=== PATIENT | female | born 1960 | race Caucasian/White ===

== ENCOUNTER → 2018-02-22 07:28 | Outpatient (CLI) | payer MEDICAID, SELFPAY ==
[2018-02-22 09:58] LABS: Hematocrit 43.6 % (37-47); Hemoglobin 14.4 g/dl (12.0-15.0); Mean Corpuscular Hgb 28.5 pg (27.0-32.0); Mean Corpuscular Volume 86.3 fL (81-99); Mean Platelet Vol. 9.6 fl (6.2-12.0); Platelet Count 257 K/mm3 (150-450); RBC Distribution Width CV 12.9 % (11.6-14.6); Red Blood Count 5.05 M/mm3 (4.2-5.4); Scan Indicated on CBC? Y/N NO; White Blood Count 6.5 K/mm3 (4.4-11.0)
[2018-02-22 10:15] LABS: Vitamin B12 259 pg/mL (211-911)
[2018-02-22 11:22] LABS: ALB/GLOB Ratio 1.3 RATIO (0.9-2.4); AST(SGOT) 23 U/L (15-37); Alanine Aminotransfer ALT/SGPT 31 U/L (13-56); Albumin, Serum 3.9 g/dL (3.2-5.0); Alkaline Phosphatase 69 U/L (45-117); Anion Gap 9 (5-15); BUN 17 mg/dL (7-18); BUN/Creat Ratio 18.4 RATIO (10-20); Calcium,Total 8.6 mg/dL (8.5-10.1); Chloride 108 mmol/L (98-107); Cholesterol 253 mg/dL (200); Creatinine, Serum 0.92 mg/dL (0.55-1.02); EST Glomerular Filtration Rate 66 mL/min (>60); Est Glom Filt Rate - Afr Amer 80 mL/min (>60); Glucose 95 mg/dL (74-106); High Density Lipoprotein 53 mg/dL; Protein, Total 6.9 g/dL (6.4-8.2); Sodium Level 143 mmol/L (136-145); Thyroid Stim Hormone (TSH) 2.34 uIU/mL (0.358-3.74); Triglycerides 295 mg/dL; Very Low Density Lipoprotein 59 mg/dL (5-40)
== END ==
PROVIDERS: Family Provider Family Medicine; PCP Family Medicine; Visit Provider Family Medicine
DX: R53.83 Other fatigue (principal); R20.2 Paresthesia of skin; Z13.6 Encounter for screening for cardiovascular disorders
CPT/HCPCS: 36415; 80053; 80061; 82607; 82746; 84443; 85027

== ENCOUNTER → 2018-03-24 14:18 | Outpatient (CLI) | payer MEDICAID, SELFPAY ==
[2018-03-24 16:01] LABS: Vitamin B12 666 pg/mL (211-911)
== END ==
PROVIDERS: Family Provider Family Medicine; PCP Family Medicine; Visit Provider Family Medicine
DX: E53.8 Deficiency of other specified B group vitamins (principal)
CPT/HCPCS: 36415; 82607; 82746

== ENCOUNTER → 2019-07-19 09:18 | Outpatient (CLI) | payer MEDICAID, SELFPAY ==
[2015-06-22 13:21] VITALS: BMI 33.0
[2019-07-19 12:35] LABS: Hematocrit 43.7 % (37-47); Hemoglobin 14.3 g/dL (12.0-15.0); Mean Corp Hgb Conc 32.7 g/dL (32-36); Mean Corpuscular Hgb 28.4 pg (27.0-32.0); Mean Corpuscular Volume 86.7 fL (81-99); Mean Platelet Vol. 9.7 fl (6.2-12.0); Platelet Count 282 K/mm3 (150-450); RBC Distribution Width CV 12.6 % (11.6-14.6); RBC Distribution Width SD 39.8 fl (35.1-43.9); Red Blood Count 5.04 M/mm3 (4.2-5.4); White Blood Count 5.9 K/mm3 (4.4-11.0)
[2019-07-19 12:47] LABS: Vitamin B12 779 pg/mL (211-911)
[2019-07-19 12:50] LABS: ALB/GLOB Ratio 1.5 RATIO (0.9-2.4); AST(SGOT) 15 U/L (15-37); Alanine Aminotransfer ALT/SGPT 29 U/L (13-56); Albumin, Serum 4.1 g/dL (3.2-5.0); Alkaline Phosphatase 66 U/L (45-117); Anion Gap 8 (5-15); BUN 16 mg/dL (7-18); BUN/Creat Ratio 18.7 RATIO (10-20); Calcium,Total 8.9 mg/dL (8.5-10.1); Chloride 108 mmol/L (98-107); Cholesterol 273 mg/dL (200); Creatinine, Serum 0.86 mg/dL (0.55-1.02); EST Glomerular Filtration Rate 72 mL/min (>60); Est Glom Filt Rate - Afr Amer 87 mL/min (>60); Globulin 2.8 g/dL (2.2-4.2); Glucose 86 mg/dL (74-106); High Density Lipoprotein 58 mg/dL; Potassium 3.8 mmol/L (3.5-5.1); Protein, Total 6.9 g/dL (6.4-8.2); Sodium Level 141 mmol/L (136-145); Thyroid Stim Hormone (TSH) 2.15 uIU/mL (0.358-3.74); Triglycerides 216 mg/dL; Very Low Density Lipoprotein 43 mg/dL (5-40)
== END ==
PROVIDERS: Family Provider Family Medicine; PCP Family Medicine; Referring Provider Family Medicine; Visit Provider Family Medicine
DX: R41.3 Other amnesia (principal); E53.8 Deficiency of other specified B group vitamins; Z13.1 Encounter for screening for diabetes mellitus; Z13.6 Encounter for screening for cardiovascular disorders
CPT/HCPCS: 36415; 80053; 80061; 82607; 84443; 85027

== ENCOUNTER → 2020-05-11 16:03 | Outpatient (CLI) | payer MEDICAID, SELFPAY ==
[2015-06-22 13:21] VITALS: BMI 33.0
[2020-05-11 17:09] LABS: Hematocrit 45.2 % (37-47); Hemoglobin 14.9 g/dL (12.0-15.0); Mean Corpuscular Hgb 28.7 pg (27.0-32.0); Mean Corpuscular Volume 87.1 fL (81-99); Mean Platelet Vol. 9.9 fl (6.2-12.0); Platelet Count 305 K/mm3 (150-450); RBC Distribution Width CV 12.4 % (11.6-14.6); RBC Distribution Width SD 39.7 fl (35.1-43.9); Red Blood Count 5.19 M/mm3 (4.2-5.4); White Blood Count 7.7 K/mm3 (4.4-11.0)
[2020-05-11 17:36] LABS: Vitamin B12 742 pg/mL (211-911)
[2020-05-11 17:42] LABS: ALB/GLOB Ratio 1.4 RATIO (0.9-2.4); AST(SGOT) 25 U/L (15-37); Alanine Aminotransfer ALT/SGPT 31 U/L (13-56); Albumin, Serum 4.1 g/dL (3.2-5.0); Alkaline Phosphatase 73 U/L (45-117); Anion Gap 7 (5-15); BUN 18 mg/dL (7-18); BUN/Creat Ratio 21.2 RATIO (10-20); Chloride 107 mmol/L (98-107); Cholesterol 195 mg/dL (200); Creatinine, Serum 0.85 mg/dL (0.55-1.02); EST Glomerular Filtration Rate 72 mL/min (>60); Est Glom Filt Rate - Afr Amer 87 mL/min (>60); Glucose 86 mg/dL (74-106); High Density Lipoprotein 65 mg/dL; Potassium 4.1 mmol/L (3.5-5.1); Protein, Total 7.1 g/dL (6.4-8.2); Sodium Level 139 mmol/L (136-145); Thyroid Stim Hormone (TSH) 1.44 uIU/mL (0.358-3.74); Triglycerides 234 mg/dL; Very Low Density Lipoprotein 47 mg/dL (5-40)
== END ==
PROVIDERS: PCP Family Medicine; Referring Provider Family Medicine; Visit Provider Family Medicine
DX: R41.3 Other amnesia (principal); Z13.1 Encounter for screening for diabetes mellitus; Z13.6 Encounter for screening for cardiovascular disorders; E53.8 Deficiency of other specified B group vitamins
CPT/HCPCS: 36415; 80053; 80061; 82607; 84443; 85027

== ENCOUNTER → 2021-06-17 13:46 | Outpatient (CLI) | payer MEDICAID, SELFPAY ==
[2021-06-17 16:00] LABS: ALB/GLOB Ratio 1.2 RATIO (0.9-2.4); AST(SGOT) 20 U/L (15-37); Alanine Aminotransfer ALT/SGPT 28 U/L (13-56); Albumin, Serum 3.7 g/dL (3.2-5.0); Alkaline Phosphatase 75 U/L (45-117); Anion Gap 7 (5-15); BUN 15 mg/dL (7-18); Calcium,Total 9.1 mg/dL (8.5-10.1); Chloride 107 mmol/L (98-107); Cholesterol 178 mg/dL (200); Creatinine, Serum 0.94 mg/dL (0.55-1.02); EST Glomerular Filtration Rate 64 mL/min (>60); Est Glom Filt Rate - Afr Amer 77 mL/min (>60); Globulin 3.2 g/dL (2.2-4.2); Glucose 88 mg/dL (74-106); High Density Lipoprotein 64 mg/dL; Protein, Total 6.9 g/dL (6.4-8.2); Sodium Level 140 mmol/L (136-145); Triglycerides 318 mg/dL; Very Low Density Lipoprotein 64 mg/dL (5-40)
== END ==
PROVIDERS: PCP Family Medicine; Referring Provider Family Medicine; Visit Provider Family Medicine
DX: E78.2 Mixed hyperlipidemia (principal)
CPT/HCPCS: 36415; 80053; 80061

== ENCOUNTER 2022-09-16 09:22 | Emergency (ER) | payer MEDICAID, SELFPAY ==
[2022-09-16 09:23] VITALS: BP 174/98; PULSE 93; RESP 16; TEMP 36.7; O2SAT 98; BMI 30.2
--- NOTE | 2022-09-16 09:27 | CT_ITS ---
STUDY: CT ABDOMEN AND PELVIS WITHOUT CONTRAST REASON FOR EXAM: Female, 62 years old. Kidney Stone. Right flank pain and hematuria for 2 days. History of ulcerative colitis. RADIATION DOSAGE (If Supplied By Facility): CTDIvol = ( 10.82 ) mGy, DLP = ( 526.89 ) mGycm TECHNIQUE: Transaxial images were obtained from the dome of the diaphragm to the symphysis pubis without oral contrast, and without intravenous contrast. Sagittal and coronal images were reconstructed. Individualized dose optimization techniques were used for this CT. COMPARISON: Comparison is made with prior examination 06/21/2015. FINDINGS: The visualized lung bases are unremarkable. Coronary artery calcification. Normal liver. Normal gallbladder and extrahepatic biliary system. Normal spleen. Normal pancreas. Normal bilateral adrenal glands. There is a 6.9 mm calculus in the right renal pelvis. No significant hydronephrosis seen. 2 mm calculus in the upper pole calyx of the right kidney. Nonobstructive left intrarenal calculi. The largest measures 4.7 mm. There is a small hiatal hernia. Normal small intestine. Surgical anastomosis in the region of the rectosigmoid colon. Moderate amount of fecal material is seen in the rectosigmoid colon. The appendix is visualized and appears normal. There is scattered atherosclerotic calcification of the abdominal aorta, without a demonstrated aneurysm. Normal inferior vena cava. Normal retroperitoneum. Normal urinary bladder. Small bilateral inguinal hernias containing fat. There are degenerative changes of the visualized lumbar spine. CT/Abdomen/Pelvis without Cont IMPRESSION: 6.9 mm calculus in the right renal pelvis. No significant hydronephrosis seen. Bilateral nonobstructive intrarenal calculi. Surgical anastomosis at the level of the rectosigmoid colon. Electronically Signed: Evaristo Kay MD at 10:29 EST ,
--- NOTE | 2022-09-16 09:31 | EDS_ITS ---
HPI HPI - Female History of Present Illness Chief Complaint: Flank Pain Narrative Narrative: 62-year-old female presenting with right flank pain. She states been present for about 4 days. She currently relates that its a mild nagging pain. Its been constant in radiates somewhat to the right lower abdomen. She states that she is not been vomiting. She is able to eat and drink. He states is not constipated and she is not having diarrhea. She is making normal stool. She denies a fever. She admits to history of kidney stones in the past. She states that her last kidney stone was about 10 years ago. Patient at that time had laser lithotripsy and stent. Patient saw Dr. Zuluaga. Patient notes that for the last 2 days she has had hematuria without dysuria or urinary frequency. She states she does not typically get urinary tract infections. PFSH [facility] Medical History Kidney stones Home Medications bupropion HCl 100 mg tablet 100 mg PO DAILY 06/21/15 [History Last Taken 06/21/15] ciprofloxacin HCl 250 mg tablet 250 mg PO BID 06/21/15 [History Last Taken 06/21/15] fluoxetine 40 mg capsule 40 mg PO DAILY 06/21/15 [History Last Taken 06/21/15] oxycodone-acetaminophen 7.5 mg-325 mg tablet (Percocet) 1 tab PO Q4H PRN PRN Pain 06/21/15 [History Last Taken 06/21/15 13:00] rosuvastatin 5 mg tablet 5 mg PO DAILY 09/16/22 [History Last Taken Unknown] [id number] 18 mg-10 mg-45 mg-5 mg-250 mg tablet (B Complex w-Vit C) 1 tab PO DAILY 09/16/22 [History Last Taken Unknown] Allergy/AdvReac Type Severity Reaction Status Date / Time meperidine HCl [From Demerol] AdvReac Vomiting Verified 09/16/22 09:25 Surgical History H/O total colectomy Social History Smoking Status: Never smoker ROS ROS ED Constitutional Constitutional ED: Denies chills or fever(s) Eyes Eyes: Denies change in vision or diplopia ENT ENT ED: Denies rhinorrhea or sore throat Cardiovascular Cardiovascular: Denies chest pain or palpitations Respiratory/Chest Respiratory/Chest: Denies cough or dyspnea Gastrointestinal Gastrointestinal: Reports abdominal pain; Denies constipation, diarrhea, nausea or vomiting Genitourinary Genitourinary ED: Reports hematuria; Denies dysuria Musculoskeletal Musculoskeletal: Reports other Details: Right flank pain ; Denies arthralgias or myalgias Integumentary Denies abscess or Abrasions Neurologic Neurologic: Denies headache(s) or paresthesias Psychiatric Psychiatric: Denies anxiety or depression EXAM Physical Exam Const Vital Signs: 09/16/22 09:23 Temperature 98.1 F Temperature Source Temporal Pulse Rate 93 Respiratory Rate 16 Blood Pressure 174/98 H Blood Pressure Mean 123 Pulse Ox 98 Oxygen Delivery Method Room Air Positive well nourished General Appearance ED: NAD HEENT Reports moist mucous membranes Eyes PERRL and EOMs intact bilaterally Neck no lymphadenopathy Resp normal respiratory effort and clear to auscultation bilaterally Auscultation: Negative for rales, rhonchi or wheezes Cardio regular rate and regular rhythm Back/Spine General Back: CVA tenderness right Extremity normal to inspection Neuro oriented x3 and CN's II-XII intact bilaterally Sensorium / Orientation: alert Motor Exam: strength 5/5 throughout Psych mental status grossly normal Skin no rashes or lesions noted and no wounds MDM MDM MDM Narrative Medical decision making narrative: Patient presenting with right flank pain and history of kidney stones. She does not report any history of vomiting, constipation, diarrhea. Highest on the differential is right-sided kidney stone however this could be pyelonephritis as well. Patient also with history of ulcerative colitis as well as a J-pouch. This also included in the differentials UC flare and possibly obstruction. Given its location I also did consider gallstones and atypical presentation. Li george panel and lipase will be checked. CBC with obtained to check white blood cell count, differential. BMP will be obtained to check renal function electrolytes. Urinalysis obtained to distinguish from occult hematuria and UTI. Patient states she feels pretty comfortable currently and only wants Toradol and Zofran. CBC shows a normal white blood cell count 8.7. There is slight hemoconcentration of hemoglobin at 15.5. There is no left shift. GFR slightly decreased at 59 and creatinine 1.01 with increased BUN/creatinine ratio 22.8. Patient was given a liter of IV fluids. Glucose slightly elevated at 111 without anion gap. Electrolytes normal. Urinalysis shows 15 urine ketones, 250 occult blood, 100 leukocyte esterase, 10-25 white blood cells, 2+ bacteria without any squamous epithelial cells. I am concerned for pyelonephritis at this point. Given that the patient has a 6.9 mm calculus in the right renal pelvis which has been present for days and constant pain I did speak with Tamy. He was amenable to admitting the patient. Patient given a dose of Rocephin IV. Urine culture was sent. All results were discussed with the patient as well as the plan. Patient mated in stable condition. Impression: 1. Pyelonephritis 2. 6.9 mm right renal pelvis calculi 3. Hematuria 4. Right flank Lab Data Attestation: I reviewed the patient's lab results. Labs: Laboratory Results - last 24 hr 09/16/22 09/16/22 09/16/22 09:33 09:33 09:33 WBC 8.7 RBC 5.38 Hgb 15.5 H Hct 46.3 MCV 86.1 MCH 28.8 MCHC 33.5 RDW Std Deviation 40.9 RDW Coeff of Marguerite 13.0 Plt Count 317 MPV 9.4 Immature Gran % (Auto) 0.200 Neut % (Auto) 43.1 L Lymph % (Auto) 41.7 H [place] % (Auto) 11.0 H Eos % (Auto) 2.9 Baso % (Auto) 1.1 H Absolute Neuts (auto) 3.8 Absolute Lymphs (auto) 3.64 Nucleated RBC % 0 Sodium 140 Potassium 4.1 Chloride 111 H Carbon Dioxide 24.0 Anion Gap 5 BUN 23 H Creatinine 1.01 Estim Creat Clear Calc 44.51 Est GFR (MDRD) Af Amer 71 Est GFR (MDRD) Non-Af 59 L BUN/Creatinine Ratio 22.8 H Glucose 111 H Calcium 9.1 Total Bilirubin 0.80 Direct Bilirubin 0.15 AST 17 ALT 26 Alkaline Phosphatase 68 Total Protein 7.5 Albumin 4.0 Globulin 3.5 Lipase 240 Urine Color Urine Clarity Urine pH Ur Specific [place] Urine Protein Urine Glucose (UA) Urine Ketones Urine Occult Blood Urine Nitrite Urine Bilirubin Urine Urobilinogen Ur Leukocyte Esterase Urine RBC Urine WBC Ur Squamous Epith Cells Urine Bacteria Urine Mucus 09/16/22 10:35 WBC RBC Hgb Hct MCV MCH MCHC RDW Std Deviation RDW Coeff of Marguerite Plt Count MPV Immature Gran % (Auto) Neut % (Auto) Lymph % (Auto) [place] % (Auto) Eos % (Auto) Baso % (Auto) Absolute Neuts (auto) Absolute Lymphs (auto) Nucleated RBC % Sodium Potassium Chloride Carbon Dioxide Anion Gap BUN Creatinine Estim Creat Clear Calc Est GFR (MDRD) Af Amer Est GFR (MDRD) Non-Af BUN/Creatinine Ratio Glucose Calcium Total Bilirubin Direct Bilirubin AST ALT Alkaline Phosphatase Total Protein Albumin Globulin Lipase Urine Color Red Urine Clarity Turbid Urine pH 6.5 Ur Specific [place] 1.025 Urine Protein 500 H Urine Glucose (UA) Normal Urine Ketones 15 H Urine Occult Blood 250 H Urine Nitrite Negative Urine Bilirubin Negative Urine Urobilinogen Normal Ur Leukocyte Esterase 100 H Urine RBC 25-50 SEEN Urine WBC 10-25 SEEN Ur Squamous Epith Cells 0 SEEN Urine Bacteria 2+ Urine Mucus 0 SEEN Radiography Diagnostic Testing: Clinical Impression(s) from Imaging Studies Abdomen/Pelvis CT 09/16/22 09:27 IMPRESSION: 6.9 mm calculus in the right renal pelvis. No significant hydronephrosis seen. Bilateral nonobstructive intrarenal calculi. Surgical anastomosis at the level of the rectosigmoid colon. Electronically Signed: Evaristo Kay MD at 10:29 EST , Discharge Plan Triage Chief Complaint: Flank Pain ED Provider: Jake Duarte Dx/Rx/DC Orders Primary Care Provider: Antonio Goss
[2022-09-16] MEDS: Ketorolac 15 MG/ML Vial IV (09:44)
[2022-09-16 09:47] LABS: Absolute Lymphocyte Count 3.64 X10^3/uL (0.83-4.51); Absolute Neutrophil Count 3.8 X10^3/uL (2.0-7.7); Basophil% 1.1 % (0-1); Eosinophil# 0.25 X10^3/uL; Eosinophils% 2.9 % (0-5); Hematocrit 46.3 % (37-47); Hemoglobin 15.5 g/dL (12.0-15.0); Lymphocyte # 3.64 X10^3/ul (0.83-4.51); Lymphocyte % 41.7 % (19-41); Mean Corp Hgb Conc 33.5 g/dL (32-36); Mean Corpuscular Hgb 28.8 pg (27.0-32.0); Mean Corpuscular Volume 86.1 fL (81-99); Mean Platelet Vol. 9.4 fl (6.2-12.0); Monocyte# 0.96 X10^3/uL; NRBC Flagged by Analyzer 0 % (0-5); Neutrophil # 3.76 X10^3/uL (2.7-7.7); Neutrophil % 43.1 % (47-70); Platelet Count 317 K/mm3 (150-450); RBC Distribution Width SD 40.9 fl (35.1-43.9); Red Blood Count 5.38 M/mm3 (4.2-5.4); White Blood Count 8.7 K/mm3 (4.4-11.0)
[2022-09-16 09:59] LABS: Anion Gap 5 (5-15); BUN 23 mg/dL (7-18); BUN/Creat Ratio 22.8 RATIO (10-20); Calcium,Total 9.1 mg/dL (8.5-10.1); Chloride 111 mmol/L (98-107); Creatinine, Serum 1.01 mg/dL (0.55-1.02); EST Glomerular Filtration Rate 59 mL/min (>60); Est Glom Filt Rate - Afr Amer 71 mL/min (>60); Estimated Creatinine Clearance 44.51 ml/min; Glucose 111 mg/dL (74-106); Potassium 4.1 mmol/L (3.5-5.1); Sodium Level 140 mmol/L (136-145)
[2022-09-16] MEDS: 0.9% Normal Saline 1,000 ML 999 ML IV (10:13)
[2022-09-16 10:31] LABS: AST(SGOT) 17 U/L (15-37); Alanine Aminotransfer ALT/SGPT 26 U/L (13-56); Alkaline Phosphatase 68 U/L (45-117); Bilirubin, Direct 0.15 mg/dL (0.00-0.30); Globulin 3.5 g/dL (2.2-4.2); Lipase 240 U/L (73-393); Protein, Total 7.5 g/dL (6.4-8.2)
[2022-09-16 10:44] LABS: Mucous, Urine 0 SEEN /hpf (<or=2+); Squamous Epithelial Cells - UA 0 SEEN /hpf (5-10)
[2022-09-16 10:47] LABS: Color, Urine Red (Yellow); Glucose, Dipstick Normal (Normal); Ketone-Dipstick 15 mg/dl (Negative); Leukocyte Esterase-Dipstick 100 /ul (Negative); Nitrite-Dipstick Negative (Negative); Occult Blood-Urine 250 /ul (Negative); Protein-Dipstick 500 mg/dl (Negative); Specific Gravity, Urine 1.025 (1.002-1.030); Urine Bilirubin Dipstick Negative (Negative); Urine Clarity Turbid (Clear); Urine Urobilinogen Normal (Normal); Urine pH 6.5 (5.0 - 8.0)
[2022-09-16 11:04] LABS: Bacteria 2+ /hpf (None Seen); Red Blood Cells-Urine 25-50 SEEN /hpf (0-5); White Blood Cells 10-25 SEEN /hpf (0-5)
--- NOTE | 2022-09-16 12:19 | PCM.HP.STD ---
HPI - General General Date of Service: 09/16/22 Chief Complaint: Right severe flank pain HPI Narrative HAIDER COLREY, is a 62 F who presents with severe right flank pain to the emergency room intractable nature. ER doctor called me to request admission for pain control she has an obstructing stone in the proximal right ureter we will bring the patient in the hospital for pain control and plan to treat the stone with shockwave lithotripsy and stent tomorrow PFSH Medical History Kidney stones Home Medications bupropion HCl 100 mg tablet 100 mg PO DAILY 06/21/15 [History Last Taken 06/21/15] ciprofloxacin HCl 250 mg tablet 250 mg PO BID 06/21/15 [History Last Taken 06/21/15] fluoxetine 40 mg capsule 40 mg PO DAILY 06/21/15 [History Last Taken 06/21/15] oxycodone-acetaminophen 7.5 mg-325 mg tablet (Percocet) 1 tab PO Q4H PRN PRN Pain 06/21/15 [History Last Taken 06/21/15 13:00] rosuvastatin 5 mg tablet 5 mg PO DAILY 09/16/22 [History Last Taken Unknown] [id number] 18 mg-10 mg-45 mg-5 mg-250 mg tablet (B Complex w-Vit C) 1 tab PO DAILY 09/16/22 [History Last Taken Unknown] Allergy/AdvReac Type Severity Reaction Status Date / Time meperidine HCl [From Demerol] AdvReac Vomiting Verified 09/16/22 09:25 Surgical History H/O total colectomy Social History Smoking Status: Never smoker ROS Constitutional Constitutional: Denies chills, fever(s) or malaise Eyes Eyes: Denies blurry vision or change in vision ENT HEENT: Reports none Cardiovascular Cardiovascular: Denies chest pain or palpitations Respiratory/Chest Respiratory/Chest: Denies cough or shortness of breath with exertion Gastrointestinal Gastrointestinal: Denies abdominal pain, constipation or diarrhea Musculoskeletal Musculoskeletal: Denies back pain, joint stiffness or joint swelling Integumentary Integumentary: Denies dry skin, jaundice, lesions or rash Neurologic Neurologic: Denies confusion, syncope or weakness Psychiatric Psychiatric: Reports none; Denies anxiety or depression Endocrine Endocrinology: Denies excessive sweating, fatigue or flushing Hematologic/Lymphatic Hematologic/Lymphatic: Denies anemia, easy bleeding or easy bruising Vital Signs Vital Signs Vital Signs: 09/16/22 09:23 Temperature 98.1 F Temperature Source Temporal Pulse Rate 93 Respiratory Rate 16 Blood Pressure 174/98 H Blood Pressure Mean 123 Pulse Ox 98 Oxygen Delivery Method Room Air Weight Weight: 74.843 kg Body Mass Index (BMI) 30.2 Physical Exam Const alert and oriented x3 General Appearance: cooperative HEENT normocephalic and head/scalp atraumatic Eyes PERRL and EOMs intact bilaterally Neck supple, no JVD and no carotid bruits Resp normal respiratory effort, normal air movement and clear to auscultation bilaterally Cardio regular rate and no murmurs GI normal to inspection, nondistended, normoactive bowel sounds and soft to palpation Extremity normal capillary refill General Extremity: no tenderness to palpation of joints or extremities; Negative for edema Skin no rashes or lesions noted and no wounds General Skin Exam: no breakdown Neuro CN's II-XII intact bilaterally Psych affect normal Appearance: appropriate Results Medical Records Data Attestation: I reviewed the patient's medical records Lab / Micro Data Attestation: I reviewed the patient's lab results. Result Diagrams: 09/16/22 09:33 09/16/22 09:33 Labs: Laboratory Results - last 24 hr 09/16/22 09:33: WBC 8.7, RBC 5.38, Hgb 15.5 H, Hct 46.3, MCV 86.1, MCH 28.8, MCHC 33.5, RDW Std Deviation 40.9, RDW Coeff of Marguerite 13.0, Plt Count 317, MPV 9.4, Immature Gran % (Auto) 0.200, Neut % (Auto) 43.1 L, Lymph % (Auto) 41.7 H, [place] % (Auto) 11.0 H, Eos % (Auto) 2.9, Baso % (Auto) 1.1 H, Absolute Neuts (auto) 3.8, Absolute Lymphs (auto) 3.64, Nucleated RBC % 0 09/16/22 09:33: Sodium 140, Potassium 4.1, Chloride 111 H, Carbon Dioxide 24.0, Anion Gap 5, BUN 23 H, Creatinine 1.01, Estim Creat Clear Calc 44.51, Est GFR (MDRD) Af Amer 71, Est GFR (MDRD) Non-Af 59 L, BUN/Creatinine Ratio 22.8 H, Glucose 111 H, Calcium 9.1 09/16/22 09:33: Total Bilirubin 0.80, Direct Bilirubin 0.15, AST 17, ALT 26, Alkaline Phosphatase 68, Total Protein 7.5, Albumin 4.0, Globulin 3.5, Lipase 240 09/16/22 10:35: Urine Color Red, Urine Clarity Turbid, Urine pH 6.5, Ur Specific [place] 1.025, Urine Protein 500 H, Urine Glucose (UA) Normal, Urine Ketones 15 H, Urine Occult Blood 250 H, Urine Nitrite Negative, Urine Bilirubin Negative, Urine Urobilinogen Normal, Ur Leukocyte Esterase 100 H, Urine RBC 25-50 SEEN, Urine WBC 10-25 SEEN, Ur Squamous Epith Cells 0 SEEN, Urine Bacteria 2+, Urine Mucus 0 SEEN Radiology Impression Abdomen/Pelvis CT 09/16/22 09:27 IMPRESSION: 6.9 mm calculus in the right renal pelvis. No significant hydronephrosis seen. Bilateral nonobstructive intrarenal calculi. Surgical anastomosis at the level of the rectosigmoid colon. Electronically Signed: Evaristo Kay MD at 10:29 EST , Assessment & Plan Assessment/Plan (1) Right flank pain: PLAN: Patient admitted for severe pain in the right side intractable nature from a stone plan to take her to surgery tomorrow for cystoscopy right stent placement and right ESWL
[2022-09-16] MEDS: Ceftriaxone 1 GM/50 ML BAG IV (12:46)
[2022-09-16] MEDS: 0.9% Normal Saline 1,000 ML 125 ML IV (12:46)
[2022-09-16 12:49] VITALS: BP 139/82; PULSE 91; RESP 15; TEMP 36.6; O2SAT 97
--- NOTE | 2022-09-16 15:17 | ED.RN ---
PT REMOVED IV. STATED SHE WAS LEAVING. AMA PAPERS GIVE TO PROVIDER. PT DID NOT WAIT TO SPEAK WITH PROVIDER ARE RECEIVE AMA PAPER.
== END 2022-09-16 15:15 | disposition left against medical advice (07) ==
LOC: ED 10:14 → MS3 12:49
PROVIDERS: Student in an Organized Health Care Education/Training Program; Emergency Provider Urology; PCP Family Medicine; Visit Provider Urology
DX: N20.1 Calculus of ureter (principal); Z90.49 Acquired absence of other specified parts of digestive tract; Z98.0 Intestinal bypass and anastomosis status; Z87.442 Personal history of urinary calculi
CPT/HCPCS: J2405; 74176; 80048; 80076; 81001; 83690; 85025; 87077; 87086; 87088; 87186; 96361; 96365; 96375; 99285; J7030; A4216

== ENCOUNTER 2022-09-24 08:15 | Day surgery (SDC) | payer MEDICAID, SELFPAY ==
[2022-09-24] VITALS (11 sets, daily range): BP systolic 122–151; BP diastolic 70–96; PULSE 70–91; RESP 15–20; TEMP 35.7–36.8; O2SAT 94–99; BMI 32.2
--- NOTE | 2022-09-24 08:25 | CT_ITS ---
STUDY: CT ABDOMEN AND PELVIS WITHOUT CONTRAST REASON FOR EXAM: Female, 62 years old. Right flank pain. PRIOR COLECTOMY. History of ulcerative colitis. RADIATION DOSAGE (If Supplied By Facility): CTDIvol = ( 11.15 ) mGy, DLP = ( 537.42 ) mGycm TECHNIQUE: Transaxial images were obtained from the dome of the diaphragm to the symphysis pubis without oral contrast, and without intravenous contrast. Sagittal and coronal images were reconstructed. Individualized dose optimization techniques were used for this CT. COMPARISON: Comparison is made with prior study dated 09/16/2022. FINDINGS: The visualized lung bases are unremarkable. Coronary artery calcification. Normal liver. Normal gallbladder and extrahepatic biliary system. Normal spleen. Normal pancreas. Normal bilateral adrenal glands. Mild right hydronephrosis and the proximal right hydroureter due to a 8.2 mm calculus in the proximal portion of the right ureter. Tiny nonobstructive right intrarenal calculi. Nonobstructive left intrarenal calculi. The largest is in the lower pole and measures 4.6 mm. There is a small hiatal hernia. Normal small intestine. The patient is status post subtotal colectomy. Anastomosis seen in the rectosigmoid junction. Moderate amount of fecal material is seen in the rectosigmoid colon. There is scattered atherosclerotic calcification of the abdominal aorta and its major visceral branches, without a demonstrated aneurysm. Normal inferior vena cava. Normal retroperitoneum. Normal urinary bladder. There is a small umbilical hernia containing fat. Small bilateral inguinal hernias containing fat. There are mild degenerative changes of the visualized lumbar spine. CT/Abdomen/Pelvis without Cont IMPRESSION: Mild right hydronephrosis and proximal right hydroureter due to a 8.2 mm calculus in the proximal right ureter. Stable bilateral nonobstructive intrarenal calculi. Status post subtotal colectomy. Electronically Signed: Evaristo Kay MD at 9:21 EST ,
--- NOTE | 2022-09-24 08:26 | EX.ED.DYSGE1 ---
HPI History of Present Illness Chief Complaint: Flank Pain Informant: patient Onset/Context/Timing Onset: Days Current Severity: Moderate Maximum Severity: Moderate Narrative Narrative: Patient presents secondary to right flank pain. She had presented to the ER on September 16 secondary to right flank pain. She was found have a 6.9 mm calculus in the right renal pelvis and evidence of a UTI. Due to intractable pain Dr. Morelos was contacted. Plan was to admit the patient and he saw the patient in the ER. Because there was a wait for inpatient bed patient remained in the ER for several hours. She reportedly advised nursing staff that she no longer wanted to stay and eloped from the ER. ER doc did call in prescriptions for [place], Cipro, and Zofran. Patient states she did order picker these medications. She still has approximately 10 tabs of Cipro left to take. Patient states that her symptoms initially improved, however worsened again the past 2 days. [facility] Medical History Kidney stones Home Medications fluoxetine 40 mg capsule 40 mg PO DAILY ANXIETY/DEPRESSION 06/21/15 [History Last Taken 09/23/22] ondansetron 4 mg disintegrating tablet 4 mg PO Q8H PRN nausea and vomiting #14 tabs 09/16/22 [Rx Last Taken Unknown] rosuvastatin 5 mg tablet 5 mg PO DAILY CHOLESTEROL 09/16/22 [History Last Taken 09/23/22] ciprofloxacin HCl 500 mg tablet (Cipro) 500 mg PO BID ANTIBIOTIC 09/24/22 [History Last Taken 09/24/22] hydrocodone-acetaminophen 5-325mg 5mg-325mg 1 tab PO Q6H PRN Pain 09/24/22 [History Last Taken 09/24/22] sodium chloride 0.65 % nasal spray aerosol (Saline Nasal) 1 spray intranasal DAILY NASAL CONGESTION 09/24/22 [History Last Taken 09/23/22] vitamin B complex 1 tab PO DAILY SUPPLEMENT 09/24/22 [History Last Taken 09/23/22] Allergy/AdvReac Type Severity Reaction Status Date / Time meperidine HCl [From Demerol] AdvReac Vomiting Verified 09/16/22 09:25 Surgical History H/O total colectomy Social History Smoking Status: Never smoker ROS ROS ED Constitutional Constitutional ED: Denies chills or fever(s) Eyes Eyes: Denies change in vision or discharge from eye(s) ENT ENT ED: Denies discharge from eye(s), rhinorrhea or sore throat Cardiovascular Cardiovascular: Denies chest pain or palpitations Respiratory/Chest Respiratory/Chest: Denies cough or dyspnea Gastrointestinal Gastrointestinal: Reports abdominal pain and nausea; Denies diarrhea or vomiting Genitourinary Genitourinary ED: Denies difficulty urinating, dysuria or hematuria Musculoskeletal Musculoskeletal: Reports back pain; Denies extremity pain Integumentary Denies Abrasions or rash Neurologic Neurologic: Denies headache(s) or weakness Psychiatric Psychiatric: Denies anxiety or depression Allergic/Immunologic Allergic/Immunologic ED: Denies lip swelling or urticaria EXAM Physical Exam Const Vital Signs: 09/24/22 08:16 09/24/22 09:37 09/24/22 11:53 Temperature 96.3 F L Temperature Source Temporal Pulse Rate 77 74 77 Respiratory Rate 20 H 18 Blood Pressure 150/96 H 151/86 H 139/82 H Blood Pressure Mean 114 107 101 Pulse Ox 98 99 98 Oxygen Delivery Method Room Air Room Air Room Air 09/24/22 14:23 Temperature Temperature Source Pulse Rate 79 Respiratory Rate 15 Blood Pressure 148/90 H Blood Pressure Mean 109 Pulse Ox 98 Oxygen Delivery Method Room Air Positive well nourished and well developed General Appearance ED: well developed HEENT Reports normocephalic and head/scalp atraumatic Eyes PERRL and EOMs intact bilaterally Neck supple Chest Wall inspection of chest normal and palpation of chest normal Resp normal respiratory effort and clear to auscultation bilaterally Cardio regular rate and regular rhythm GI non-tender Auscultation: hypoactive bowel sounds Palpation: soft Extremity normal to inspection Neuro oriented x3 and no sensory deficits noted Sensorium / Orientation: alert Motor Exam: strength 5/5 throughout Psych mental status grossly normal Skin no rashes or lesions noted MDM MDM MDM Narrative Medical decision making narrative: Patient given IV fluids along with morphine and Zofran. CBC and chemistry studies obtained. Urinalysis ordered as patient did have recent urinary infection. CT flank obtained given patient's history of stone. Lab Data Attestation: I reviewed the patient's lab results. Labs: Laboratory Results - last 24 hr 09/24/22 09/24/22 09/24/22 08:28 08:28 10:50 WBC 13.3 H RBC 5.14 Hgb 14.9 Hct 44.0 MCV 85.6 MCH 29.0 MCHC 33.9 RDW Std Deviation 40.3 RDW Coeff of Marguerite 12.9 Plt Count 306 MPV 9.5 Immature Gran % (Auto) 0.400 Neut % (Auto) 67.2 Lymph % (Auto) 20.9 [place] % (Auto) 8.9 Eos % (Auto) 1.8 Baso % (Auto) 0.8 Absolute Neuts (auto) 9.0 H Absolute Lymphs (auto) 2.78 Nucleated RBC % 0 Sodium 141 Potassium 3.7 Chloride 108 H Carbon Dioxide 26.0 Anion Gap 7 BUN 19 H Creatinine 1.04 H Estim Creat Clear Calc 43.22 Est GFR (MDRD) Af Amer 69 Est GFR (MDRD) Non-Af 57 L BUN/Creatinine Ratio 18.3 Glucose 120 H Calcium 9.9 Urine Color Yellow Urine Clarity Sl. Cloudy Urine pH 7.0 Ur Specific [place] 1.015 Urine Protein 100 H Urine Glucose (UA) Normal Urine Ketones Negative Urine Occult Blood 250 H Urine Nitrite Positive H Urine Bilirubin Negative Urine Urobilinogen Normal Ur Leukocyte Esterase 500 H Urine RBC 25-50 SEEN Urine WBC 25-50 SEEN Ur Squamous Epith Cells 0-5 SEEN Urine Bacteria 1+ Urine Mucus 0 SEEN Radiography Diagnostic Testing: Clinical Impression(s) from Imaging Studies Abdomen/Pelvis CT 09/24/22 08:25 IMPRESSION: Mild right hydronephrosis and proximal right hydroureter due to a 8.2 mm calculus in the proximal right ureter. Stable bilateral nonobstructive intrarenal calculi. Status post subtotal colectomy. Electronically Signed: Evaristo Kay MD at 9:21 EST , Treatment and Re-Evaluation Narrative: StudiesAfter returning from CT patient did have increased pain. At that time blood work had returned and was reviewed. White count is elevated at 13.3 but no left shift noted. Reveal BUN of 19 and creatinine 1.04. Patient is given a dose of Toradol along with 0.[address] scan returns with evidence of mild right hydronephrosis and proximal hydroureter secondary to an 8.2 mm calculus in the proximal right ureter. I reviewed the CT scan from last week. At that time she had a stone in the right renal pelvis. Urinalysis returns with evidence of continued infection. She has 25-50 white cells, 25-50 red cells, 1+ bacteria, positive nitrates. I did review her urine culture from last week. She had evidence of Enterococcus, sensitive to ciprofloxacin. She did take a dose of Cipro this morning. At this time with the large stone now in the proximal ureter, I will speak with Dr. Morelos. Addendum: I spoke with her Morelos. He initially stated that they would not have any OR time available and that as long as the patient was comfortable she could follow-up as an outpatient. When I discussed this with her she states that her insurance does not cover Dr. Morelos to be seen as an outpatient, but she does have an upcoming appointment scheduled with Dr. Meade on October 03. I then paged her Deshaun to update her of the patient's findings. While awaiting this call back I received a phone call from Dr. Morelos that they are attempting to get her an OR time of 3 PM this afternoon for stent placement. I spoke with Dr. Meade and she is comfortable with this plan and will see the patient in outpatient follow-up as needed. Patient is transferred to OR for stent placement. Discharge Plan Dx/Rx/DC Orders Clinical Impression: Ureterolithiasis, UTI (urinary tract infection) Disposition Disposition: Acute Care Hospital [facility]
[2022-09-24] MEDS: Ondansetron 4 MG/2 ML Vial IV (08:36)
[2022-09-24] MEDS: 0.9% Normal Saline 1,000 ML 150 ML IV (08:36)
[2022-09-24] MEDS: Morphine 4 MG/ML Syringe IV (08:38)
[2022-09-24 08:44] LABS: Absolute Lymphocyte Count 2.78 X10^3/uL (0.83-4.51); Basophil# 0.11 X10^3/uL; Basophil% 0.8 % (0-1); Eosinophil# 0.24 X10^3/uL; Eosinophils% 1.8 % (0-5); Hemoglobin 14.9 g/dL (12.0-15.0); Lymphocyte # 2.78 X10^3/ul (0.83-4.51); Lymphocyte % 20.9 % (19-41); Mean Corp Hgb Conc 33.9 g/dL (32-36); Mean Corpuscular Volume 85.6 fL (81-99); Mean Platelet Vol. 9.5 fl (6.2-12.0); Monocyte# 1.19 X10^3/uL; Monocyte% 8.9 % (0-10); NRBC Flagged by Analyzer 0 % (0-5); Neutrophil # 8.96 X10^3/uL (2.7-7.7); Neutrophil % 67.2 % (47-70); Platelet Count 306 K/mm3 (150-450); RBC Distribution Width CV 12.9 % (11.6-14.6); RBC Distribution Width SD 40.3 fl (35.1-43.9); Red Blood Count 5.14 M/mm3 (4.2-5.4); White Blood Count 13.3 K/mm3 (4.4-11.0)
[2022-09-24 08:59] LABS: Anion Gap 7 (5-15); BUN 19 mg/dL (7-18); BUN/Creat Ratio 18.3 RATIO (10-20); Calcium,Total 9.9 mg/dL (8.5-10.1); Chloride 108 mmol/L (98-107); Creatinine, Serum 1.04 mg/dL (0.55-1.02); EST Glomerular Filtration Rate 57 mL/min (>60); Est Glom Filt Rate - Afr Amer 69 mL/min (>60); Estimated Creatinine Clearance 43.22 ml/min; Glucose 120 mg/dL (74-106); Potassium 3.7 mmol/L (3.5-5.1); Sodium Level 141 mmol/L (136-145)
[2022-09-24] MEDS: HYDROmorphone 0.5 MG/0.5 ML SYRINGE IV (09:35)
[2022-09-24] MEDS: Ketorolac 30 MG/ML Syringe IV (09:35)
[2022-09-24 11:01] LABS: Mucous, Urine 0 SEEN /hpf (<or=2+)
[2022-09-24 11:03] LABS: Color, Urine Yellow (Yellow); Glucose, Dipstick Normal (Normal); Ketone-Dipstick Negative (Negative); Leukocyte Esterase-Dipstick 500 /ul (Negative); Nitrite-Dipstick Positive (Negative); Occult Blood-Urine 250 /ul (Negative); Protein-Dipstick 100 mg/dl (Negative); Specific Gravity, Urine 1.015 (1.002-1.030); Urine Bilirubin Dipstick Negative (Negative); Urine Clarity Sl. Cloudy (Clear); Urine Urobilinogen Normal (Normal)
[2022-09-24 11:10] LABS: Bacteria 1+ /hpf (None Seen); Red Blood Cells-Urine 25-50 SEEN /hpf (0-5); Squamous Epithelial Cells - UA 0-5 SEEN /hpf (5-10); White Blood Cells 25-50 SEEN /hpf (0-5)
--- NOTE | 2022-09-24 14:50 | PCM.HP.STD ---
HPI - General General Date of Service: 09/24/22 Chief Complaint: Right kidney stone HPI Narrative HAIDER CORLEY, is a 62 F who presents to the emergency room for the second time with severe right flank pain she also appears to have a urinary tract infection white blood count is too high but with a urinary tract infection obstructing stone recommended we take her surgery and place a stent on the right side to alleviate the obstruction and we will get her set up for shockwave lithotripsy as an outpatient. [facility] Medical History Kidney stones Home Medications fluoxetine 40 mg capsule 40 mg PO DAILY ANXIETY/DEPRESSION 06/21/15 [History Last Taken 09/23/22] ondansetron 4 mg disintegrating tablet 4 mg PO Q8H PRN nausea and vomiting #14 tabs 09/16/22 [Rx Last Taken Unknown] rosuvastatin 5 mg tablet 5 mg PO DAILY CHOLESTEROL 09/16/22 [History Last Taken 09/23/22] ciprofloxacin HCl 500 mg tablet (Cipro) 500 mg PO BID ANTIBIOTIC 09/24/22 [History Last Taken 09/24/22] hydrocodone-acetaminophen 5-325mg 5mg-325mg 1 tab PO Q6H PRN Pain 09/24/22 [History Last Taken 09/24/22] sodium chloride 0.65 % nasal spray aerosol (Saline Nasal) 1 spray intranasal DAILY NASAL CONGESTION 09/24/22 [History Last Taken 09/23/22] vitamin B complex 1 tab PO DAILY SUPPLEMENT 09/24/22 [History Last Taken 09/23/22] Allergy/AdvReac Type Severity Reaction Status Date / Time meperidine HCl [From Demerol] AdvReac Vomiting Verified 09/16/22 09:25 Surgical History H/O total colectomy Social History Smoking Status: Never smoker Vital Signs Vital Signs Vital Signs: 09/24/22 08:16 09/24/22 09:37 09/24/22 11:53 Temperature 96.3 F L Temperature Source Temporal Pulse Rate 77 74 77 Respiratory Rate 20 H 18 Blood Pressure 150/96 H 151/86 H 139/82 H Blood Pressure Mean 114 107 101 Pulse Ox 98 99 98 Oxygen Delivery Method Room Air Room Air Room Air 09/24/22 14:23 Temperature Temperature Source Pulse Rate 79 Respiratory Rate 15 Blood Pressure 148/90 H Blood Pressure Mean 109 Pulse Ox 98 Oxygen Delivery Method Room Air Weight Weight: 80 kg Body Mass Index (BMI) 32.2 Results Lab / Micro Data Result Diagrams: 09/24/22 08:28 09/24/22 08:28 Labs: Laboratory Results - last 24 hr 09/24/22 08:28: WBC 13.3 H, RBC 5.14, Hgb 14.9, Hct 44.0, MCV 85.6, MCH 29.0, MCHC 33.9, RDW Std Deviation 40.3, RDW Coeff of Marguerite 12.9, Plt Count 306, MPV 9.5, Immature Gran % (Auto) 0.400, Neut % (Auto) 67.2, Lymph % (Auto) 20.9, [place] % (Auto) 8.9, Eos % (Auto) 1.8, Baso % (Auto) 0.8, Absolute Neuts (auto) 9.0 H, Absolute Lymphs (auto) 2.78, Nucleated RBC % 0 09/24/22 08:28: Sodium 141, Potassium 3.7, Chloride 108 H, Carbon Dioxide 26.0, Anion Gap 7, BUN 19 H, Creatinine 1.04 H, Estim Creat Clear Calc 43.22, Est GFR (MDRD) Af Amer 69, Est GFR (MDRD) Non-Af 57 L, BUN/Creatinine Ratio 18.3, Glucose 120 H, Calcium 9.9 09/24/22 10:50: Urine Color Yellow, Urine Clarity Sl. Cloudy, Urine pH 7.0, Ur Specific [place] 1.015, Urine Protein 100 H, Urine Glucose (UA) Normal, Urine Ketones Negative, Urine Occult Blood 250 H, Urine Nitrite Positive H, Urine Bilirubin Negative, Urine Urobilinogen Normal, Ur Leukocyte Esterase 500 H, Urine RBC 25-50 SEEN, Urine WBC 25-50 SEEN, Ur Squamous Epith Cells 0-5 SEEN, Urine Bacteria 1+, Urine Mucus 0 SEEN Radiology Impression Abdomen/Pelvis CT 09/24/22 08:25 IMPRESSION: Mild right hydronephrosis and proximal right hydroureter due to a 8.2 mm calculus in the proximal right ureter. Stable bilateral nonobstructive intrarenal calculi. Status post subtotal colectomy. Electronically Signed: Evaristo Kay MD at 9:21 EST ,
--- NOTE | 2022-09-24 14:51 | PCM.DC ---
Discharge Instructions Diet Discharge Diet: No restrictions Dressing / Incision Call your doctor if your incision/area has: Continuous Slow Oozing, Increased Pain/ Swelling, Increased Redness and Foul Smelling Discharge Call your doctor if you observe: Fever of 101 or Higher, Numbness or Tingling, Shortness of breath, Dizziness, Calf discomfort and Uncontrolled pain Follow Up Care Please Follow Up With: Cristian Morelos MD When: call [phone] to set up for Surgery to blast stone. Test Results: Test results from this visit will be discussed in further detail at your follow-up appointment, if applicable. Discharge Plan Admission Attending Provider: Cristian Morelos Primary Care Provider: Antonio Goss Discharge Orders/Prescriptions Prescriptions: No Action fluoxetine 40 MG capsule 40 mg PO DAILY rosuvastatin 5 mg Tablet 5 mg PO DAILY ondansetron 4 mg tablet,disintegrating 4 mg PO Q8H PRN (Reason: nausea and vomiting) Qty: 14 0RF B Complex Tablet Extended Release 1 tab PO DAILY Saline Nasal 0.65 % Aerosol,[place] 1 spray INTRANASAL DAILY hydrocodone-acetaminophen 5-325 mg tablet 1 tab PO Q6H PRN (Reason: Pain) ciprofloxacin HCl [Cipro] 500 mg tablet 500 mg PO BID Referrals / Follow Up: Antonio Goss DO [Primary Care Provider] - Disposition Disposition (needs filled in before D/C Order can be placed): Home, Self Care
--- NOTE | 2022-09-24 15:14 | OP.PCM_ITS ---
Report of Operation Date of Procedure: 09/24/22 Pre-Operative Diagnosis: Right obstructing ureteral calculus Post-Operative Diagnosis: The same Surgery/Procedure Performed:: Cystoscopy right stent placement Description of Surgical Findings:: Patient was taken back to the operating room after induction of general anesthesia, the patient was placed in dorsolithotomy position. The urethra and genitals were prepped and draped in usual sterile fashion. Using a 21 [place] rigid cystourethroscope the entire length of the urethra was normal then went into the bladder. Identified the trigone the left and right ureteral orifice. I then cannulated the right ureteral orifice and advanced a wire up into the kidney. I then backloaded a 5 [place] open ended catheter over the wire and injected contrast to delineate the anatomy. After the retrograde was performed I then used fluoroscopic images and guidance to advanced a wire up into the kidney and over the 0.038 glidewire I advanced a 6 [place] by 26 cm double pigtail stent. I then pulled the 0.038 Glidewire off and the stent coiled in the kidney bladder good position. The bladder was then drained. We confirmed the position of the stent by fluoroscopy. Patient anesthetic was reversed and was taken back to the PACU in good condition. Surgeon: Cristian Morelos Type of Anesthesia: MAC Admit VTE Documentation VTE Present on Admission: No VTE Mechan Device Prophylaxis: SCD's VTE Pharm Prophylaxis ordered?: No
[2022-09-24] MEDS: Ketorolac 15 MG/ML Vial IV (15:36)
== END 2022-09-24 16:35 | disposition home or self-care (01) ==
LOC: ED 14:40 → SDC 14:46 → ACINP 14:46
PROVIDERS: Emergency Provider Emergency Medicine; PCP Family Medicine; Visit Provider Urology
PROC: (CPT 52332; principal; 2022-09-24 14:50)
DX: N20.1 Calculus of ureter (principal); N39.0 Urinary tract infection, site not specified; Z79.899 Other long term (current) drug therapy
CPT/HCPCS: 52332; 00910; 99281; 74176; 76000; 80048; 81001; 85025; 87086; 99283; J7030; J7120; A4216; C1769; J2405

== ENCOUNTER → 2023-03-28 | Outpatient (CLI) | payer MEDICAID, SELFPAY ==
[2023-03-28 11:17] LABS: Hematocrit 44.5 % (37-47); Mean Corp Hgb Conc 33.7 g/dL (32-36); Mean Corpuscular Hgb 28.4 pg (27.0-32.0); Mean Corpuscular Volume 84.3 fL (81-99); Mean Platelet Vol. 9.3 fl (6.2-12.0); Platelet Count 330 K/mm3 (150-450); RBC Distribution Width SD 39.4 fl (35.1-43.9); Red Blood Count 5.28 M/mm3 (4.2-5.4); White Blood Count 6.6 K/mm3 (4.4-11.0)
[2023-03-28 11:51] LABS: ALB/GLOB Ratio 1.2 RATIO (0.9-2.4); AST(SGOT) 27 U/L (15-37); Alanine Aminotransfer ALT/SGPT 29 U/L (13-56); Alkaline Phosphatase 74 U/L (45-117); Anion Gap 9 (5-15); BUN 16 mg/dL (7-18); Calcium,Total 9.3 mg/dL (8.5-10.1); Chloride 110 mmol/L (98-107); Cholesterol 257 mg/dL (200); Creatinine, Serum 0.94 mg/dL (0.55-1.02); EST Glomerular Filtration Rate 64 mL/min (>60); Est Glom Filt Rate - Afr Amer 77 mL/min (>60); Globulin 3.2 g/dL (2.2-4.2); Glucose 103 mg/dL (74-106); High Density Lipoprotein 71 mg/dL; Potassium 3.4 mmol/L (3.5-5.1); Protein, Total 7.2 g/dL (6.4-8.2); Sodium Level 140 mmol/L (136-145); Thyroid Stim Hormone (TSH) 0.96 uIU/mL (0.358-3.74); Triglycerides 112 mg/dL; Very Low Density Lipoprotein 22 mg/dL (5-40)
[2023-03-28 11:54] LABS: Hemoglobin A1c 5.6 % (3.8-5.6)
[2023-03-30 08:23] LABS: Vitamin D,25 Hydroxy 28.3 ng/mL
== END | disposition home or self-care (01) ==
LOC: LAB 10:34
PROVIDERS: Referring Provider Nurse Practitioner Family; Visit Provider Nurse Practitioner Family
DX: E78.5 Hyperlipidemia, unspecified (principal); F41.8 Other specified anxiety disorders; R03.0 Elevated blood-pressure reading, without diagnosis of hypertension; Z13.1 Encounter for screening for diabetes mellitus
CPT/HCPCS: 36415; 80053; 80061; 82306; 83036; 84443; 85027

== ENCOUNTER → 2023-12-23 | Outpatient (CLI) | payer MEDICARE, SELFPAY ==
[2023-12-23 13:01] LABS: Absolute Lymphocyte Count 2.58 X10^3/uL (0.83-4.51); Absolute Neutrophil Count 3.9 X10^3/uL (2.0-7.7); Basophil# 0.06 X10^3/uL; Basophil% 0.8 % (0-1); Eosinophil# 0.18 X10^3/uL; Eosinophils% 2.4 % (0-5); Hematocrit 43.4 % (37-47); Hemoglobin 14.3 g/dL (12.0-15.0); Lymphocyte # 2.58 X10^3/ul (0.83-4.51); Lymphocyte % 33.9 % (19-41); Mean Corp Hgb Conc 32.9 g/dL (32-36); Mean Corpuscular Hgb 28.3 pg (27.0-32.0); Mean Corpuscular Volume 85.8 fL (81-99); Mean Platelet Vol. 9.7 fl (6.2-12.0); Monocyte# 0.84 X10^3/uL; NRBC Flagged by Analyzer 0 % (0-5); Neutrophil # 3.92 X10^3/uL (2.7-7.7); Neutrophil % 51.5 % (47-70); Platelet Count 363 K/mm3 (150-450); RBC Distribution Width CV 13.1 % (11.6-14.6); RBC Distribution Width SD 41.1 fl (35.1-43.9); Red Blood Count 5.06 M/mm3 (4.2-5.4); White Blood Count 7.6 K/mm3 (4.4-11.0)
[2023-12-23 13:51] LABS: Hemoglobin A1c 5.5 % (3.8-5.6)
[2023-12-23 14:21] LABS: ALB/GLOB Ratio 0.8 RATIO (0.9-2.4); AST(SGOT) 35 U/L (15-37); Alanine Aminotransfer ALT/SGPT 99 U/L (13-56); Albumin, Serum 3.4 g/dL (3.2-5.0); Alkaline Phosphatase 163 U/L (45-117); Anion Gap 5 (5-15); BUN 23 mg/dL (7-18); BUN/Creat Ratio 20.4 RATIO (10-20); Calcium,Total 9.9 mg/dL (8.5-10.1); Chloride 109 mmol/L (98-107); Cholesterol 199 mg/dL (200); Creatinine, Serum 1.13 mg/dL (0.55-1.02); EST Glomerular Filtration Rate 51 mL/min (>60); Est Glom Filt Rate - Afr Amer 62 mL/min (>60); Glucose 103 mg/dL (74-106); High Density Lipoprotein 48 mg/dL; Potassium 3.5 mmol/L (3.5-5.1); Protein, Total 7.4 g/dL (6.4-8.2); Sodium Level 138 mmol/L (136-145); Triglycerides 181 mg/dL; Very Low Density Lipoprotein 36 mg/dL (5-40)
[2023-12-28 11:07] LABS: Vitamin D 1,25-Dihydroxy 43.6 pg/mL (24.8-81.5)
== END | disposition home or self-care (01) ==
PROVIDERS: PCP Nurse Practitioner Family; Referring Provider Nurse Practitioner Family; Visit Provider Nurse Practitioner Family
DX: E78.5 Hyperlipidemia, unspecified (principal); R03.0 Elevated blood-pressure reading, without diagnosis of hypertension; F41.8 Other specified anxiety disorders; Z13.1 Encounter for screening for diabetes mellitus
CPT/HCPCS: 36415; 80053; 80061; 82652; 83036; 84443; 85025

== ENCOUNTER → 2023-12-28 | Outpatient (CLI) | payer MEDICARE, SELFPAY ==
[2023-12-28 10:26] LABS: ALB/GLOB Ratio 0.9 RATIO (0.9-2.4); AST(SGOT) 25 U/L (15-37); Alanine Aminotransfer ALT/SGPT 45 U/L (13-56); Albumin, Serum 3.4 g/dL (3.2-5.0); Alkaline Phosphatase 109 U/L (45-117); Anion Gap 9 (5-15); BUN 18 mg/dL (7-18); BUN/Creat Ratio 15.9 RATIO (10-20); Calcium,Total 9.3 mg/dL (8.5-10.1); Chloride 110 mmol/L (98-107); Creatinine, Serum 1.13 mg/dL (0.55-1.02); EST Glomerular Filtration Rate 51 mL/min (>60); Est Glom Filt Rate - Afr Amer 62 mL/min (>60); Globulin 3.9 g/dL (2.2-4.2); Glucose 123 mg/dL (74-106); Potassium 3.8 mmol/L (3.5-5.1); Protein, Total 7.3 g/dL (6.4-8.2); Sodium Level 142 mmol/L (136-145)
== END | disposition home or self-care (01) ==
LOC: PAVLAB 09:37
PROVIDERS: PCP Nurse Practitioner Family; Referring Provider Nurse Practitioner Family; Visit Provider Nurse Practitioner Family
DX: R74.01 Elevation of levels of liver transaminase levels (principal)
CPT/HCPCS: 36415; 80053

== ENCOUNTER 2024-04-03 23:44 | Emergency (ER) | payer MEDICARE, SELFPAY ==
[2024-04-03 23:44] VITALS: BP 154/82; PULSE 85; RESP 16; TEMP 36.1; O2SAT 97; BMI 32.3
--- NOTE | 2024-04-04 00:11 | EDS_ITS ---
HPI HPI - GI History of Present Illness Chief Complaint: Flank Pain Informant: patient Narrative Narrative: 63-year-old female feels like she is having a kidney stone on the left. Pain started 2 days ago, it was mild, it has been colicky and just gradually worsening especially today. No nausea, vomiting, urinary symptoms, or fevers or chills. No hematuria. She has had to have stones surgically removed in the past, blasted. She states she is not in a ton of pain right now. She took Tylenol earlier. [facility] Medical History (Updated 04/04/24 @ 01:[address] Sly Lo MD) Ulcerative colitis Kidney stones Home Medications ?Medication ?Instructions ?Recorded ?Last Taken ?Type fluoxetine 40 mg capsule 40 mg PO DAILY ANXIETY/DEPRESSION 06/21/15 09/23/22 History oxycodone-acetaminophen 5 mg-325 1 tab PO Q6H PRN PRN Pain 3 days 04/04/24 Unknown Rx mg tablet #12 TABLETS sulfamethoxazole 800 1 tab PO BID #14 TABLETS 04/04/24 Unknown Rx mg-trimethoprim 160 mg tablet Allergy/AdvReac Type Severity Reaction Status Date / Time meperidine HCl (From Demerol) AdvReac Vomiting Verified 04/03/24 23:44 Surgical History H/O total colectomy Social History Smoking Status: Never smoker ROS ROS ED Constitutional Constitutional ED: Denies chills or fever(s) Eyes Eyes: Denies change in vision or diplopia ENT ENT ED: Denies rhinorrhea or sore throat Cardiovascular Cardiovascular: Denies chest pain or palpitations Respiratory/Chest Respiratory/Chest: Denies cough or dyspnea Gastrointestinal Gastrointestinal: Reports abdominal pain; Denies diarrhea, nausea or vomiting Genitourinary Genitourinary ED: Reports flank pain; Denies dysuria or hematuria Musculoskeletal Musculoskeletal: Denies back pain or neck pain Integumentary Denies abscess or rash Neurologic Neurologic: Denies headache(s), paresthesias or weakness Psychiatric Psychiatric: Denies anxiety or suicidal thoughts EXAM Physical Exam Const Vital Signs: 04/03/24 23:44 Temperature 97 F L Temperature Source Temporal Pulse Rate 85 Respiratory Rate 16 Blood Pressure 154/82 H Blood Pressure Mean 106 Pulse Ox 97 Positive well nourished and well developed General Appearance ED: well developed and NAD HEENT Reports moist mucous membranes normocephalic and atraumatic Eyes PERRL and EOMs intact bilaterally Neck full ROM and supple Resp normal respiratory effort and clear to auscultation bilaterally Cardio regular rate, regular rhythm and no murmurs GI non-tender and non-distended Auscultation: normoactive bowel sounds Palpation: soft Back/Spine no CVA tenderness General Back: other FROM Extremity normal to inspection General Extremety ED: Negative for edema, pulses abnormal or tenderness General Extremity: Negative for edema or pulses abnormal Neuro oriented x3, CN's II-XII intact bilaterally and no sensory deficits noted Sensorium / Orientation: awake and alert Motor Exam: strength 5/5 throughout Skin no rashes or lesions noted and no wounds MDM MDM MDM Narrative Medical decision making narrative: Patient has fairly normal vital signs except for a little bit of hypertension, and she is well-appearing, she is in very little discomfort right now and nontender. My suspicion for AAA or other acute pathology is very low. Sending a urine to rule out infection, of which she has no symptoms, and I discussed management with her. I think there are multiple options. If she wanted a prescription for pain medication and some strainers, after ruling out infection that would be completely reasonable and have her follow-up with urology as needed, I offered a CT to evaluate for the size and position given that she has needed surgery for large stones in the past, she is amenable to the CT which I think is also reasonable. Urine actually shows indicators of infection but without bacteria. Unknown if this is true infection or just inflammation but we will cover the patient with antibiotics. She is well-appearing and not septic, she does not have CVA tenderness. I did review the CT images and the report which I agree with, and shows a left distal ureteral stone 6 mm and a nonobstructing left renal stone 5 mm. No other abnormalities although she did have some hydronephrosis. She is well-appearing, she was given Toradol she could use a little bit of pain medication but she is still doing relatively well, she is driving home some going to give her a prescription for some Percocet she can take home when she gets home in addition to the antibiotic she is comfortable with that plan follow-up with urology. Discharge with strainers, I suspect she will pass a stone since it is at the [facility]. Therefore for now expectant management is indicated. Lab Data Attestation: I reviewed the patient's lab results. Labs: Laboratory Results - last 24 hr 04/04/24 00:33 Urine Color Yellow Urine Clarity Clear Urine pH 5.0 Ur Specific [place] 1.020 Urine Protein Negative Urine Glucose (UA) Normal Urine Ketones Negative Urine Occult Blood 150 H Urine Nitrite Negative Urine Bilirubin Negative Urine Urobilinogen Normal Ur Leukocyte Esterase 500 H Urine RBC 0-5 SEEN Urine WBC 25-50 SEEN Ur Squamous Epith Cells 0 SEEN Ur Renal Epithelial Cell 0-5 SEEN Urine Bacteria 0 SEEN Urine Mucus 0 SEEN Radiography Diagnostic Testing: Clinical Impression(s) from Imaging Studies Abdomen/Pelvis CT 04/04/24 23:58 IMPRESSION: Moderate left hydroureteronephrosis with a 0.6 cm distal ureteral obstructing calculus. Nonobstructing left lower pole 0.5 cm calculus. Electronically Signed: Gregory Augustine MD at 0:44 EDT , Discharge Plan Triage Chief Complaint: Flank Pain ED Provider: Sly Lo Dx/Rx/DC Orders Clinical Impression: Ureteral colic, Ureterolithiasis, Renal colic on left side Instructions: ED Kidney Stone with Pain Prescriptions: New oxycodone-acetaminophen 5-325 mg tablet 1 tab PO Q6H PRN PRN (Reason: Pain) 3 Days Qty: 12 0RF sulfamethoxazole-trimethoprim 800-160 mg tablet 1 tab PO BID Qty: 14 0RF No Action fluoxetine 40 MG capsule 40 mg PO DAILY Primary Care Provider: Dulce Pettit Referrals: Cristian Morelos MD [Med Staff - Active Staff] - 1 Week if not improving Dulce Pettit, [employer] [Primary Care Provider] - Print Language: [place]an Disposition Disposition: Home, Self Care
[2024-04-04] MEDS: Ketorolac 15 MG/ML Vial IV (00:18)
[2024-04-04 00:43] LABS: Bacteria 0 SEEN /hpf (None Seen); Mucous, Urine 0 SEEN /hpf (<or=2+); Squamous Epithelial Cells - UA 0 SEEN /hpf (5-10)
[2024-04-04 00:45] LABS: Glucose, Dipstick Normal (Normal); Ketone-Dipstick Negative (Negative); Leukocyte Esterase-Dipstick 500 /ul (Negative); Nitrite-Dipstick Negative (Negative); Occult Blood-Urine 150 /ul (Negative); Protein-Dipstick Negative (Negative); Urine Bilirubin Dipstick Negative (Negative); Urine Urobilinogen Normal (Normal)
[2024-04-04 00:56] LABS: Color, Urine Yellow (Yellow); Red Blood Cells-Urine 0-5 SEEN /hpf (0-5); Renal Epithelial Cells 0-5 SEEN /hpf (0-5); Urine Clarity Clear (Clear); White Blood Cells 25-50 SEEN /hpf (0-5)
[2024-04-04 01:44] VITALS: BP 145/83; PULSE 86; RESP 16; TEMP 37.1; O2SAT 97
[2024-04-04 01:48] VITALS: BP 145/83; PULSE 86; RESP 17; TEMP 37.1; O2SAT 99
[2024-04-04] MEDS: Smz/Tmp Ds Tablet 1 TABLET PO (01:55)
--- NOTE | 2024-04-04 23:58 | CT_ITS ---
INDICATION: Kidney Stone left EXAMINATION: CT ABDOMEN AND PELVIS WITHOUT CONTRAST - CT Abdomen And Pelvis W/O Contrast Injection TECHNIQUE: Helically acquired images were obtained of the abdomen and pelvis without oral or IV contrast. A radiation dose optimization technique was used for this scan. IV Contrast dosage and agent: None. Oral contrast: None. RADIATION DOSAGE (If Supplied By Facility): CTDIvol = ( 12.50 ) mGy, DLP = ( 599.77 ) mGycm COMPARISON: Prior study dated: 09/24/2022 FINDINGS: LOWER CHEST: Lung bases are clear. No cardiomegaly or pericardial effusion. LIVER: The liver is normal in size, shape, and attenuation. No focal mass. GALLBLADDER AND BILIARY TREE: The gallbladder is normally distended. No gallstones. No gallbladder wall thickening or edema. No intra- or extrahepatic biliary ductal dilation. PANCREAS: No focal cystic or solid mass. SPLEEN: Normal size without focal cystic or solid mass. ADRENAL GLANDS: No nodules. KIDNEYS AND URETERS: Normal renal size and position. Moderate left hydroureteronephrosis. 0.6 cm calculus in the distal ureter approximately 4 cm from the ureterovesicular junction. Additional nonobstructing left lower pole renal calculus measures 0.5 cm . PERITONEUM: No ascites or free air. No other fluid collection. BOWEL: The stomach is unremarkable. Normal caliber small bowel. No obstruction. Postsurgical changes of colectomy multiple small bowel anastomoses. J-pouch present which is stool-filled. LYMPH NODES: No enlarged mesenteric or retroperitoneal lymph nodes. VESSELS: Aorta is non-dilated. URINARY BLADDER: Unremarkable. REPRODUCTIVE ORGANS: No pelvic masses. ABDOMINAL WALL: Small fat-containing inguinal region hernias . BONES: No acute or suspicious osseous abnormality. CT/Abdomen/Pelvis without Cont IMPRESSION: Moderate left hydroureteronephrosis with a 0.6 cm distal ureteral obstructing calculus. Nonobstructing left lower pole 0.5 cm calculus. Electronically Signed: Gregory Augustine MD at 0:44 EDT ,
== END 2024-04-04 02:03 | disposition home or self-care (01) ==
PROVIDERS: Emergency Provider Emergency Medicine; PCP Nurse Practitioner Family; Visit Provider Emergency Medicine
DX: N13.2 Hydronephrosis with renal and ureteral calculous obstruction (principal)
CPT/HCPCS: 74176; 81001; 87086; 87088; 96374; 99283; A4216

== ENCOUNTER → 2024-08-09 | Outpatient (CLI) | payer MEDICARE, SELFPAY ==
[2024-08-09 12:52] LABS: Absolute Lymphocyte Count 2.44 X10^3/uL (0.83-4.51); Absolute Neutrophil Count 3.6 X10^3/uL (2.0-7.7); Basophil# 0.11 X10^3/uL; Basophil% 1.6 % (0-1); Eosinophil# 0.21 X10^3/uL; Hematocrit 43.2 % (37-47); Lymphocyte # 2.44 X10^3/ul (0.83-4.51); Mean Corp Hgb Conc 32.4 g/dL (32-36); Mean Corpuscular Hgb 27.8 pg (27.0-32.0); Mean Corpuscular Volume 85.7 fL (81-99); Mean Platelet Vol. 9.9 fl (6.2-12.0); Monocyte# 0.62 X10^3/uL; Monocyte% 8.9 % (0-10); NRBC Flagged by Analyzer 0 % (0-5); Neutrophil # 3.58 X10^3/uL (2.7-7.7); Neutrophil % 51.2 % (47-70); Platelet Count 284 K/mm3 (150-450); RBC Distribution Width CV 12.9 % (11.6-14.6); RBC Distribution Width SD 40.5 fl (35.1-43.9); Red Blood Count 5.04 M/mm3 (4.2-5.4)
[2024-08-09 13:06] LABS: Vitamin D,25 Hydroxy 18.3 ng/mL
[2024-08-09 14:14] LABS: ALB/GLOB Ratio 1.2 RATIO (0.9-2.4); AST(SGOT) 21 U/L (15-37); Alanine Aminotransfer ALT/SGPT 23 U/L (13-56); Albumin, Serum 3.7 g/dL (3.2-5.0); Alkaline Phosphatase 73 U/L (45-117); Anion Gap 5 (5-15); BUN 17 mg/dL (7-18); BUN/Creat Ratio 19.4 RATIO (10-20); Calcium,Total 9.2 mg/dL (8.5-10.1); Chloride 112 mmol/L (98-107); Cholesterol 296 mg/dL (200); Creatinine, Serum 0.88 mg/dL (0.55-1.02); EST Glomerular Filtration Rate 69 mL/min (>60); Est Glom Filt Rate - Afr Amer 83 mL/min (>60); Globulin 3.1 g/dL (2.2-4.2); Glucose 105 mg/dL (74-106); High Density Lipoprotein 60 mg/dL; Potassium 3.7 mmol/L (3.5-5.1); Protein, Total 6.8 g/dL (6.4-8.2); Sodium Level 141 mmol/L (136-145); Triglycerides 253 mg/dL; Very Low Density Lipoprotein 51 mg/dL (5-40)
[2024-08-09 15:15] LABS: Hemoglobin A1c 5.5 % (3.8-5.6)
== END | disposition home or self-care (01) ==
LOC: VSLAB 09:47
PROVIDERS: PCP Nurse Practitioner Family; Visit Provider Nurse Practitioner Family
DX: E78.5 Hyperlipidemia, unspecified (principal); E55.9 Vitamin D deficiency, unspecified; F41.8 Other specified anxiety disorders; R73.9 Hyperglycemia, unspecified
CPT/HCPCS: 36415; 80053; 80061; 82306; 83036; 85025

== ENCOUNTER → 2025-05-30 | Outpatient (CLI) | payer MEDICARE, SELFPAY ==
[2025-05-30 16:54] LABS: Hematocrit 46.2 % (37-47); Hemoglobin 15.0 g/dL (12.0-15.0); Immature Granulocytes Count 0.010 X10^3/uL (0.0-0.0); Mean Corp Hgb Conc 32.5 g/dL (32-36); Mean Corpuscular Volume 87.2 fL (81-99); Mean Platelet Vol. 10.7 fl (6.2-12.0); NRBC Flagged by Analyzer 0 % (0-5); Platelet Count 320 K/mm3 (150-450); RBC Distribution Width CV 13.1 % (11.6-14.6); RBC Distribution Width SD 41.4 fl (35.1-43.9); Red Blood Count 5.30 M/mm3 (4.2-5.4); White Blood Count 7.5 K/mm3 (4.4-11.0)
[2025-05-30 17:58] LABS: AST(SGOT) 21 U/L (<=31); Alanine Aminotransfer ALT/SGPT 18 U/L (<=34); Albumin, Serum 4.4 g/dL (3.4-4.8); Alkaline Phosphatase 72 U/L (35-104); Anion Gap 13 (5-15); BUN 22 mg/dL (4-19); BUN/Creat Ratio 21.4 RATIO (10-20); Calcium,Total 9.5 mg/dL (7.6-11.0); Carbon Dioxide 21.0 mmol/L (21.0-32.0); Chloride 105 mmol/L (98-108); Cholesterol 296 mg/dL (<=200); Globulin 2.5 g/dL (2.2-4.2); Glucose 96 mg/dL (70-99); Low Density Lipoprotein Calc. 187 mg/dL; Potassium 4.0 mmol/L (3.3-5.1); Triglycerides 224 mg/dL; Very Low Density Lipoprotein 45 mg/dL (5-40); Vitamin D,25 Hydroxy 31.0 ng/mL (30-100); cholesterol:hdl ratio screen 4.57
== END | disposition home or self-care (01) ==
LOC: VSLAB 13:39
PROVIDERS: PCP Nurse Practitioner Family; Visit Provider Nurse Practitioner Family
DX: E55.9 Vitamin D deficiency, unspecified (principal); E78.5 Hyperlipidemia, unspecified; F41.8 Other specified anxiety disorders
CPT/HCPCS: 36415; 80053; 80061; 82306; 84443; 85025